=== PATIENT | male | born 1970 | race Caucasian/White ===

== ENCOUNTER 2021-04-08 11:48 | Emergency (ER) | payer SELFPAY ==
--- NOTE | 2021-04-08 12:00 | NUR ---
CALLED TO TRIAGE NO ANSWER.
--- NOTE | 2021-04-08 12:07 | NUR ---
LEFT BEFORE TRIAGE ASSESSMENT.
== END 2021-04-08 12:08 | disposition left against medical advice (07) ==
LOC: ER 11:52
DX: Z53.21 Procedure and treatment not carried out due to patient leaving prior to being seen by health care provider (principal)